=== PATIENT | male | born 1995 ===

== ENCOUNTER 2024-06-02 20:43 | Emergency (ER) | payer OTHER ==
[2024-06-02] MEDS: methylPREDNISolone Sodium Succinate 40 MG/1 ML SDV IM ONE (20:45)
[2024-06-02] MEDS: methylPREDNISolone Sodium Succinate 40 MG/1 ML SDV IVPUSH ONE (20:45)
[2024-06-02 20:55] VITALS: BP 144/83
[2024-06-02 21:48] VITALS: PULSE 117
== END 2024-06-02 21:30 | disposition home or self-care (01) ==
LOC: LB.ED 20:43
DX: T78.01XA Anaphylactic reaction due to peanuts, initial encounter (principal); Z91.010 Allergy to peanuts
CPT/HCPCS: 96374; 99283-25; 99284; A0425; A0429; J2919